=== PATIENT | male | born 1955 ===

== ENCOUNTER 2023-11-02 05:42 | Day surgery (SDC) | payer OTHER ==
[2023-11-02] MEDS ORDERED: DIPHENHYDRAMINE HCL 50 MG/ML VIAL 1ML IV ONE (11:00)
[2023-11-02] MEDS ORDERED: MIDAZOLAM HCL 2 MG/2 ML VIAL IV ONE (11:00)
[2023-11-02] MEDS ORDERED: fentaNYL CITRATE 50 MCG/ML AMPUL IV ONE (11:00)
== END 2023-11-02 12:33 | disposition home or self-care (01) ==
LOC: CIR.AMB 05:42 → AMB-ENDOS 05:42 → CIR.AMB 13:45
PROVIDERS: ATTEND Surgery
DX: D12.8 Benign neoplasm of rectum (principal); K63.5 Polyp of colon; K57.30 Diverticulosis of large intestine without perforation or abscess without bleeding; K64.8 Other hemorrhoids